=== PATIENT | male | born 1995 | race Two or more races ===

== ENCOUNTER 2018-01-08 14:45 | Emergency (ER) | payer SELFPAY ==
[2018-01-08 17:46] VITALS: BP 128/88
--- NOTE | 2018-01-09 06:47 | ED ---
Influenza-Like Illness - HPI Summary HPI Summary: Patient is a 22yo M from [place] with flu like symptoms of cough, but no fevers, sweats or chills or myalgias. Currently asymptomatic, however 2 others in the home have also had tested positive for the flu. He denies fevers today. Otherwise healthy, takes no medications. - History of Current Complaint Chief Complaint: EDGeneral Time Seen by Provider: 01/08/18 14:50 Hx Obtained From: Patient, Family/In File Operator, Milieu Manager Onset/Duration: Sudden Onset Severity: Mild Associated Signs & Symptoms: Negative Related Hx: Possible Flu/Infectious Exposure - Allergy/Home Medications Allergies/Adverse Reactions: Allergies Allergy/AdvReac Type Severity Reaction Status Date / Time No Known Allergies Allergy Verified 01/08/18 14:56 Home Medications: Home Medications Unobtainable 01/08/18 [History Confirmed 01/08/18] PMH/Surg Hx/FS Hx/Imm Hx Previously Healthy: Yes - Immunization History Hx Pertussis Vaccination: No Immunizations Up to Date: Unable to Obtain/Confirm Infectious Disease History: No Infectious Disease History: Reports: Traveled Outside the [place] in Last 30 Days - Social History Occupation: Unemployed, Student Lives: With Family Alcohol Use: Occasionally Hx Substance Use: No Substance Use Type: Reports: None Smoking Status (MU): Never Smoked Tobacco Review of Systems Constitutional: Negative Negative: Fever, Chills, Fatigue, Skin Diaphoresis Negative: Palpitations, Chest Pain Negative: Shortness Of Breath, Cough Genitourinary: Negative Positive: no symptoms reported, see HPI Negative: Arthralgia, Myalgia Skin: Negative Neurological: Negative All Other Systems Reviewed And Are Negative: Yes Physical Exam Triage Information Reviewed: Yes Vital Signs On Initial Exam: Initial Vitals Temp Pulse Resp BP Pulse Ox 98.3 F 60 14 121/92 100 01/08/18 14:45 01/08/18 14:45 01/08/18 14:45 01/08/18 14:45 01/08/18 14:45 Vital Signs Reviewed: Yes Appearance: Positive: Well-Appearing, Well-Nourished Skin: Positive: Warm, Skin Color Reflects Adequate Perfusion Head/Face: Positive: Normal Head/Face Inspection Eyes: Positive: EOMI, VICKI, Conjunctiva Clear Neck: Positive: Supple, No Lymphadenopathy Respiratory/Lung Sounds: Positive: Clear to Auscultation, Breath Sounds Present Cardiovascular: Positive: RRR Musculoskeletal: Positive: Strength/ROM Intact Psychiatric: Positive: Normal AVPU Assessment: Alert Diagnostics - Vital Signs Vital Signs Temp Pulse Resp BP Pulse Ox 01/08/18 17:33 98.5 F 93 18 128/88 97 01/08/18 14:45 98.3 F 60 14 121/92 100 - Laboratory Lab Results: Lab Results 01/08/18 Range/Units 15:30 Influenza A (Rapid) Negative (Negative) Influenza B (Rapid) Negative (Negative) Lab Statement: Any lab studies that have been ordered have been reviewed, and results considered in the medical decision making process. Flu Symptom Course/Dx - Course Course Of Treatment: He is asymptomatic and has had flu contacts. Flu swab obtained and is negative. He will be dx with flu exposure. Lungs CTA. RRR. Appears well. - Diagnoses Differential Diagnosis/HQI/PQRI: Positive: Influenza Provider Diagnoses: Exposure to influenza Discharge - Sign-Out/Discharge Documenting (check all that apply): Discharge/Admit/Transfer - Discharge Plan Condition: Stable Disposition: HOME Referrals: No Primary Care Phys,NOPCP [Primary Care Provider] - - Billing Disposition and Condition Condition: STABLE Disposition: Home
== END 2018-01-08 17:33 | disposition home or self-care (01) ==
LOC: ED 14:45
DX: R05 Cough (principal); Z20.828 Contact with and (suspected) exposure to other viral communicable diseases
CPT/HCPCS: 99282